=== PATIENT | female | born 1930 | race Caucasian/White ===

== ENCOUNTER 2017-12-14 13:59 | Inpatient (IN) | payer MEDICARE ==
[2017-12-14] VITALS (9 sets, daily range): BP systolic 145–188; BP diastolic 57–95
[~2017-12-14] VITALS: Ht 152.4 cm; Wt 61.7 kg
[2017-12-14] MEDS ORDERED: OXYBUTYNIN5 M1 PO (14:58)
[2017-12-14] MEDS ORDERED: FLONASE AL50 MCG/ACT NAB (15:05)
[2017-12-14] MEDS ORDERED: LOSARTAN POT50 MG PO (15:09)
[2017-12-14] MEDS ORDERED: CALCIUM 600 +600 MG PO (15:11)
[2017-12-14] MEDS ORDERED: OMEPRAZOLE10 MG PO (15:12)
[2017-12-14] MEDS ORDERED: MAGNESIUM200 MG PO (15:13)
[2017-12-14] MEDS ORDERED: LEVOTHYROXIN75 MCG PO (15:16)
[2017-12-14] MEDS ORDERED: AMIODARONE200 MG PO (15:17)
[2017-12-14] MEDS ORDERED: METOPROL TAR25 MG PO (15:17)
[2017-12-14] MEDS ORDERED: COUMADIN2.5 MG PO (15:18)
[2017-12-14] MEDS ORDERED: MINOCYCLINE100 MG PO (15:19)
[2017-12-14] MEDS ORDERED: SILVADENE1 % EX (15:21)
[2017-12-14 15:26] LABS: HEMATOCRIT 39.5 % (37.0-47.0); HEMOGLOBIN 12.7 g/dl (12.0-16.0); IMMATURE GRANULOCYTES 0.5 % (0.0-1.0); MEAN CELL VOLUME 90.6 fL CALC (80.0-100.0); MEAN CORPUSCULAR HGB 29.1 pG CALC (26.0-32.0); MEAN CORPUSCULAR HGB CONC 32.2 g/L CALC (32.0-36.0); NEUT# 6.67 thou/uL (2.00-7.15); RED BLOOD COUNT 4.36 mill/uL (4.20-5.60); RED CELL DISTRI WIDTH 14.7 % (11.5-15.5)
[2017-12-14 15:52] LABS: ANION GAP 15 (6-22 (CALC)); BUN 30 mg/dL (8-23); BUN/CREATININE RATIO 27 (12-20 (CALC)); CARBON DIOXIDE 24 mmol/l (22-30); CHLORIDE 102 mmol/l (95-108); CREATININE 1.1 mg/dL (0.5-1.0); GFR 47 ML/MIN (>=60 (CALC)); GFR FOR AFR.AMER. 57 ML/MIN (>=60 (CALC)); MAGNESIUM 2.3 mg/dL (1.6-2.3); POTASSIUM 4.7 mmol/l (3.5-5.1); SODIUM 137 mmol/l (137-146)
[2017-12-14 16:06] LABS: INTERNATIONAL NORMALIZED RATIO 1.8 RATIO (0.7-1.3)
== END 2017-12-14 20:06 | disposition short-term general hospital (02) | DRG 310 ==
LOC: ICU 13:59
PROVIDERS: ADMIT Internal Medicine; ATTEND Internal Medicine
DX: R00.1 Bradycardia, unspecified (principal); Z95.2 Presence of prosthetic heart valve; E03.9 Hypothyroidism, unspecified; T46.2X5A Adverse effect of other antidysrhythmic drugs, initial encounter; T44.7X5A Adverse effect of beta-adrenoreceptor antagonists, initial encounter; I48.91 Unspecified atrial fibrillation; N18.9 Chronic kidney disease, unspecified; I12.9 Hypertensive chronic kidney disease with stage 1 through stage 4 chronic kidney disease, or unspecified chronic kidney disease; G47.30 Sleep apnea, unspecified; Z86.73 Personal history of transient ischemic attack (TIA), and cerebral infarction without residual deficits; Z79.01 Long term (current) use of anticoagulants

== ENCOUNTER 2018-07-04 01:18 | Emergency (ER) | payer MEDICARE ==
[~2018-07-04] VITALS: Ht 152.4 cm; Wt 61.4 kg
[~2018-07-04 01:18] MED LIST: AMIODARONE200 MG PO; CALCIUM 600 +600 MG PO; COUMADIN2.5 MG PO; FLONASE AL50 MCG/ACT NAB; LEVOTHYROXIN75 MCG PO; LOSARTAN POT50 MG PO; MAGNESIUM200 MG PO; METOPROL TAR25 MG PO; MINOCYCLINE100 MG PO; OMEPRAZOLE10 MG PO; OXYBUTYNIN5 M1 PO; SILVADENE1 % EX
[2018-07-04] MEDS ORDERED: ULTRAM50 M1 PO (03:00)
[2018-07-04 04:36] VITALS: BP 139/75
== END 2018-07-04 04:50 | disposition home or self-care (01) ==
LOC: ED 01:18
DX: S42.291A Other displaced fracture of upper end of right humerus, initial encounter for closed fracture (principal); S83.91XA Sprain of unspecified site of right knee, initial encounter; I10 Essential (primary) hypertension; G47.30 Sleep apnea, unspecified; W01.0XXA Fall on same level from slipping, tripping and stumbling without subsequent striking against object, initial encounter; Y93.89 Activity, other specified; Y92.009 Unspecified place in unspecified non-institutional (private) residence as the place of occurrence of the external cause; Z86.73 Personal history of transient ischemic attack (TIA), and cerebral infarction without residual deficits